=== PATIENT | female | born 1945 | race Caucasian/White ===

== ENCOUNTER 2018-01-20 11:07 | Emergency (ER) | payer MEDICARE ==
[~2018-01-20] VITALS: Ht 157.5 cm; Wt 59.2 kg
[2018-01-20 11:33] VITALS: BP 121/69
[2018-01-20] MEDS ORDERED: BENZ0.5T3 MT (11:52)
[2018-01-20] MEDS ORDERED: RISP0.2514 MT (11:53)
[2018-01-20] MEDS ORDERED: DIVA500T MT (11:53)
[2018-01-20 12:10] LABS: BASOPHILS % 0.4 % (0.0-2.0); EOSINOPHILS % 0.9 % (0.0-5.0); HEMATOCRIT. 38.2 % (36.0-48.0); HEMOGLOBIN. 13.1 g/dL (12.0-16.0); LYMPHOCYTES % 31.2 % (20.0-50.0); MEAN CORPUSCULAR HEMOGLOBIN 31.3 pg (28.0-32.0); MEAN CORPUSCULAR VOLUME 91.2 fL (81.0-99.0); MEAN PLATELET VOLUME 7.4 fl (7.4-10.4); MONOCYTES % 7.6 % (2.0-8.0); NEUTROPHILS % 59.9 % (40.0-76.0); PLATELET 240 x1000/uL (130-400); RED BLOOD CELL COUNT 4.18 mill/uL (4.2-5.4); RED CELL DISTRIBUTION WIDTH 13.7 % (11.6-14.6)
[2018-01-20 12:16] LABS: CHLORIDE 106 mEq/L (98-107)
[2018-01-20] MEDS ORDERED: PERMETHRIN 5% CREAM 60GM TOP ONE (12:45)
== END 2018-01-20 13:09 | disposition home or self-care (01) ==
LOC: ER 12:38
DX: B86 Scabies (principal); F32.9 Major depressive disorder, single episode, unspecified; F17.200 Nicotine dependence, unspecified, uncomplicated; Z88.6 Allergy status to analgesic agent
CPT/HCPCS: 36415; 80048; 85025; 99284